=== PATIENT | female | born 2000 ===

== ENCOUNTER 2024-02-07 21:39 | Outpatient (REF) | payer MEDICAID, SELFPAY ==
--- OUTSIDE RECORDS SUMMARY | 2024-02-07 21:48 | XMS_ITS | Encounter Summary ---
[facility] Organization [facility] [place] [address] Care Team Providers Care Wet Pan Mixer Name Role Phone Chrsi Perez MD Primary Care Provider [phone] Reason for Visit * Reason Comments Varicella Encounter Details Date Type Department Care Team (Late st Contact Info) Description 12/25/2010 2:51 PM EDT - 12/25/2010 6:16 PM EDT [place] [address] Elvin Best Jr., MD [facility] [address] [place]ER[place] [address] Contact dermatitis and other eczema, due to unspecified cause Discharge Disposition: Home Social History Tobacco Use Types Packs/Day Years Used Date Smoking Tobacco: Never Smokeless Tobacco: Never Alcohol Use Standard Drinks/Week Comments No 0 (1 standard drink = 0.6 oz pur e alcohol) Sex and Gender Information Value Date Recorded Sex Assigned at Not on file Gender Identity Not on file Sexual Orientation Not on file documented as of this encounter Last Filed Vital Signs Vital Sign Reading Time Taken Comments Blood Pressure 109/65 12/25/2010 3:13 PM EDT Pulse 78 12/25/2010 3:13 PM EDT Temperature 36.7 ??C (98.1 ??F) 12/25/2010 3:13 PM ED T Respiratory Rate 16 12/25/2010 3:13 PM EDT Oxygen Saturation 99% 12/25/2010 3:13 PM EDT Inhaled Oxygen Concentration - - Weight - - Height - - Body Mass Index - - documented in this encounter Discharge Instructions * Discharge Instructions* Kavya Gonzales - 12/25/2010 6:14 PM EDT See attached document for details regarding contact dermatitis. Continue Prednisone as prescribed by your PCP. You may take Benadryl or Zyrtec as needed for itch. Apply Calamine lotion for itching asneeded. You should follow up with your PCP if symptoms worsen, particularly if rash extends to involve inside of mouth or eyes, or if appearance of rash changes. You should also see your PCP if any other concerns arise, including fever, feeling generally unwell, or any other concerns. * Attachments The following attachments cannot be sent through Care Everywhere. * POISON TESS, OAK, AND SUMAC: AFTER YOUR CHILD'S VISIT (LATVIAN) documented in this encounter Medications at Time of Discharge Medication Sig Dispensed Refills Start Date End Date predniSONE (DELTASONE) 5 mg tablet Take 5 mg by mouth daily. cetirizine (ZYRTEC) 10 mg tablet Take 10 mg by mouth daily. calamine (CALADRYL) lotion Apply topically as needed. documented as of this encounter ED Notes * Elvin Best Jr., MD - 12/25/2010 6:43 PM EDT Images from the original note were not included. Chief Complaint Patient presents with ??? Varicella HPI Per patient and her mother, Tena developed an itchy, erythematous rash affecting primarily her lower extremities approximately 1 week ago. She was outdoors, and possibly exposed to poison tess or other contact allergen. She was evaluated by her primary care physician, who diagnosed rhus dermatitis and prescribed a low dose of prednisone. Since that time she has not improved significantly, although she has not worsened either. She denies systemic signs such as fever and there is no mucous membrane involvement. THere are no sick contacts and no known exposure to varicella. In addition, this patient is up to date on all of her vaccinations. No Known Allergies Review of Systems Physical Exam Constitutional: She appears well-developed and well-nourished. HENT: Mouth/Throat: Mucous membranes are moist. Cardiovascular: Normal rate and regular rhythm. Pulses are palpable. Pulmonary/Chest: Effort normal and breath sounds normal. Abdominal: Soft. No tenderness. Musculoskeletal: Normal range of motion. Neurological: She is alert. Skin: Skin is warm and dry. Rash noted. No abrasion, no bruising and no petechiae noted. Rash is maculopapular and crusting. Rash is not pustular and not urticarial. No signs of injury. Procedures MDM Number of Diagnoses or Management Options Contact dermatitis and other eczema, due to unspecified cause: Amount and/or Complexity of Data Reviewed Obtain history from someone other than the patient: yes Risk of Complications, Morbidity, and/or Mortality Presenting problems: low Diagnostic procedures: minimal Management options: low ED Course: I interviewed and examined this patient in conjuction with Dr. Mcdonald, and I agree with the history and physical as documented in her note, and I agree with the treatment plan, disposition and plan for follow-up. Elvin Best Jr., MD 12/25/102013 Elvin Best Jr., MD 12/26/101954 * Kavya Gonzales - 12/25/2010 5:15 PM EDT Tena Chowdary is a 10 y.o. female Chief Complaint Patient presents with ??? Varicella HPI Tena Chowdary is a 10 y.o. female who presents with a rash which has progressed over the past 8 days. Rash started on her ankles and spread along her legs and to her toes. She has no genital or ocular involvement. She has known exposure to various local foliage 12 days ago. She was seen by her PCP three days ago and diagnosed with poison tess. She was started on a low dose prednisone taper at that time, as well as zyrtec for symptomatic relief. Mom has been applying calamine lotion. She has been doing epsom salt baths as well which have been moderately helpful. However, rash continued to spread. She is brought to the ED today for a second opinion. She has not history of poison tess. No steroid courses in the past. Immunizations are up to date. No known contacts with chickenpox. Medications Prednisone 5mg po daily Zyrtec 10 mg daily Allergies NKDA Review of Systems Constitutional: Negative for appetite change, fever, unexpected weight change. HENT: Negative for congestion, rhinorrhea, and ear pain. Cardiac: Negative for palpitations, chest pain, shortness of breath. Respiratory: Negative for cough, wheezing. Gastrointestinal: Negative for vomiting, abdominal pain, diarrhea and constipation. Genitourinary: Negative for decreased urine volume. Musculoskeletal: Negative for joint swelling and arthralgias. Skin: Negative for rash. Neuro: Negative for syncope, headaches, vision and hearing changes. Physical Exam Constitutional: No distress. HENT: Mouth/Throat: Oropharynx is clear. Eyes: Conjunctivae and EOM are normal. Pupils are equal, round, and reactive to light. Neck: Normal range of motion. Neck supple. Cardiovascular: Normal rate and regular rhythm. No murmur heard. Pulmonary/Chest: Effort normal and breath sounds normal. There is normal air entry. Abdominal: Soft. Neurological: She is alert. Skin: Skin is warm. Capillary refill takes less than 3 seconds. Rash ( ) noted. Rash is maculopapular, vesicular and urticarial. Psychiatric: She has a normal mood and affect. BP 109/65 Pulse 78 Temp(Src) 36.7 ??C (98.1 ??F) (Oral) Resp 16 SpO2 99% Procedures MDM Assessment/Plan: Tena Chowdary is a 10 y.o. female who presents with an urticarial rash for the past week. Appearance of course of illness is consistent with contact dermatitis, suspect due to poison tess or similar local foliage. Reassured by the absence of ocular, genital, or mucus membrane involvement. Sheshould finish her course of steroids. She may take benadryl and zyrtec and apply calamine lotion for symptomatic relief. She will follow up with her PCP as needed if symptoms do not continue to improve, or if she develops additional symptoms including fever, feeling generally unwell, or if rash changes in appearance or spreads, particularly if it involves eyes or mucus membranes. Kavya Gonzales MD Resident 12/25/10 2842 * Garo Noriega RN - 12/25/2010 3:42 PM EDT Mom noticed what looked like early poison tess 8 days ago on the back of her calf. Gradually spread over legs over the next few days. Not responsive calamine lotion or to prednisone. Rash continues tospread over legs. Only a few above waist. Lesions are small red raised bumps that becomes a vesicles. Has a few on the bottom of her feet and on the palms of her hands. C/o itching. documented in this encounter Miscellaneous Notes * Discharge Summary - Provider, Scanning - 12/26/2010 10:58 AM EDT * Miscellaneous - Provider, Scanning - 12/25/2010 5:17 PM EDT * ED Triage - Ritika Boyer RN - 12/25/2010 3:15 PM EDT Pt isolated in triage 2 with door shut to not expose pts and family members in lobby. * ED Triage - Ritika Boyer RN - 12/25/2010 3:08 PM EDT Pt started with fluid filled bumps on 12/17. Seen by pcp Wednesday put on prednisone for poison tess. Pt not better. Pt presents with multi fluid filled bulla on legs and arms, some crusted over, covered in caladryl lotion. Pt co itching. Pt states I just sort of stayed away from my classmates. documented in this encounter Plan of Treatment Not on file documented as of this encounter Visit Diagnoses Diagnosis Contact dermatitis and other eczema, due to unspecified cause documented in this encounter Care Teams Wet Pan Mixer Relationship Specialty Start Date End Date Chris Perez MD PCP - General 03/04/10 01/19/11 documented as of this encounter
--- OUTSIDE RECORDS SUMMARY | 2024-02-07 21:48 | XMS_ITS | Encounter Summary ---
Author Organization [facility] [place] [address] Care Team Providers Care Director Financial Planning Name Role Phone Saji Lilly MD Primary Care Provider [phone] Encounter Details Date Type Department Care Team (Late st Contact Info) Description 02/13/2014 3:45 PM EST Office Visit Audiology at [address] [address] Shantelle Bui AUD [facility] [place] [address] Other examination of ears and hearing (Primary Dx); Learning disabilities Discharge Disposition: Home Social History Tobacco Use Types Packs/Day Years Used Date Smoking Tobacco: Never Smokeless Tobacco: Never Alcohol Use Standard Drinks/Week Comments No 0 (1 standard drink = 0.6 oz pur e alcohol) Sex and Gender Information Value Date Recorded Sex Assigned at Not on file Gender Identity Not on file Sexual Orientation Not on file documented as of this encounter Progress Notes * Shantelle Bui MA - 02/13/2014 5:27 PM EST AUDIOLOGY SECTION [place], [place] HISTORY: Name: Tena CamposIsabel Age: 13 y.o. Referring Provider: SAJI LILLY MD Reason for Visit: Document hearing in light of academic difficulties. Accompanied by: mother, who contributed to the following information. ?? Family interested in documenting hearing in light of academic difficulties. Mother relayed that child presents with dyslexia and gap in working memory. Currently in the process of having educational evaluation completed through [facility]. Mother noted that child also underwent testing through the [facility] as well. ?? No overt hearing difficulties observed at home; does not appear to have marked difficulties hearing in noisier settings (when compared with others). Sings; carries a tune well. ?? No significant history of middle ear infections/fluid; last episode many years ago. ?? No ear pain/fullness/discomfort/ongoing tinnitus. ?? Described as a health youngster. ?? No family history of childhood hearing loss. ?? Uses hearing protection when target shooting. EVALUATION: (please refer to audiogram) IMPRESSIONS: Today's results consistent with normal hearing acuity and excellent word recognition ability for each ear. Today's results were shared with the family. It was explained no communication or academic difficulties anticipated given the current hearing configuration. With these things in mind, the following recommendations were discussed. RECOMMENDATIONS: ?? Audiologic reevaluation should new concerns arise. Today's results supported good peripheral auditory function. If, however, there are questions regarding auditory processing ability, then a formal auditory processing evaluation may be appropriate.Information regarding centers that provide auditory processing evaluations was shared briefly with the family ([facility] [place] offer this service[place] The family was encouraged to discuss the need/feasibility of auditory processing testing further with their primary care provider andschool staff. Shantelle Bui MA, [facility], [facility] Garment Patternmaker [place] [phone] (v) / [phone] (f) Attachment: audiogram CC: Parents of Tena Chowdary [address] [place] [address] SAJI LILLY MD / PCP documented in this encounter Plan of Treatment Not on file documented as of this encounter Visit Diagnoses Diagnosis Other examination of ears and hearing- Primary Learning disabilities Other specific developmental learning difficulties documented in this encounter Care Teams Director Financial Planning Relationship Specialty Start Date End Date Saji Lilly MD PCP - General 02/12/14 05/08/14 documented as of this encounter
--- OUTSIDE RECORDS SUMMARY | 2024-02-07 21:48 | XMS_ITS | Encounter Summary ---
[facility] Organization [facility] [place] [address] Care Team Providers Care Pediatric Critical Care Nurse Name Role Phone Marifer Lilly MD Primary Care Provider Encounter Details Date Type Department Care Team (Late st Contact Info) Description 02/14/2014 External Results [place] [address] Shantelle Bui AUD [facility] [place] [address] Social History Tobacco Use Types Packs/Day Years Used Date Smoking Tobacco: Never Smokeless Tobacco: Never Alcohol Use Standard Drinks/Week Comments No 0 (1 standard drink = 0.6 oz pur e alcohol) Sex and Gender Information Value Date Recorded Sex Assigned at Not on file Gender Identity Not on file Sexual Orientation Not on file documented as of this encounter Plan of Treatment Not on file documented as of this encounter Procedures Procedure Name Priority Date/Time Associated Diagnosis Comments AUDIOLOGY SCAN Routine 02/13/2014 documented in this encounter Results * Scan Doc: Audiology (02/13/2014) Shantelle Bui AUD MEDIA MGR SCAN EXT ORDR/RSLT documented in this encounter Visit Diagnoses Not on filedocumented in this encounter Care Teams Pediatric Critical Care Nurse Relationship Specialty Start Date End Date Marifer Lilly MD PCP - General 02/12/14 05/08/14 documented as of this encounter
--- OUTSIDE RECORDS SUMMARY | 2024-02-07 21:48 | XMS_ITS | Encounter Summary ---
Author Organization [facility] Address [facility] [place] [address] Care Team Providers Care Electrical Equipment Technician Name Role Phone Chelita Rahman MD Primary Care Provider [phone] Reason for Visit * Reason Comments ADHD Encounter Details Date Type Department Care Team (Late st Contact Info) Description 01/26/2014 9:30 AM EDT Office Visit Psychiatry and [place] [address] Jolene Llanes MD [facility] [place] [address] Learning disability (Primary Dx) Social History Tobacco Use Types Packs/Day Years [...] Sign Reading Time Taken Comments Blood Pressure 102/64 01/26/2014 11:31 AM EDT Pulse 66 01/26/2014 11:31 AM EDT Temperature - - Respiratory Rate - - Oxygen Saturation - - Inhaled Oxygen Concentration - - Weight 60 kg (132 lb 3.2 oz) 01/26/2014 11:31 AM EDT Height 165.1 cm (5' 5) 01/26/2014 11:31 AM EDT Body Mass Index 22 01/26/2014 11:31 AM EDT Body Mass Index Percentile 85.07% 01/26/2014 11: 31 AM EDT Growth Chart: CDC (Girls, 2- 20 Years) documented in this encounter Progress Notes * John Vera MD - 01/29/2014 10:46 AM EDT I have examined Tena and interviewed Mother with Dr Llanes and agree with her formulation and plan as documented. My MSE confirms hers. I agree with seeking consultation from Dr Kevin Hernandez for the purposes of facilitating an IEP at school that will better meet Tena's needs and accommodate her learning difficulties. * Jolene Llanes MD - 01/26/2014 12:06 PM EDT This patient was seen by and staffed by Dr. Vera during today's visit. DIAGNOSTIC INTERVIEW CPT CODE 83191/83507; DENITA 5100 Patient Name: Tena Chowdary : 2000 Encounter Date: 01/26/2014 Time Spent: 90m Location: [facility] Primary Care Provider: CHELITA RAHMAN MD Referred by: PCP Information Source: Child and parent interviews and rating scales, teacher rating scales, chart review,neuropsych testing Guardian(s): mom and dad Identifying Information/Chief Complaint: This is a 13 y.o. female in grade 7th at School who lives at [address] [place] [id number]. The mother's chief complaint is wanting IEP for learning disability and r/o ADHD. History of Present Illness: Tena is a 13y CF with a recent neuropsychiatric testing in July 2012 that shows specific deficits in working memory and dyslexia with some recommendations for school to better accommodate her learning. Mom wanted to have thorough testing and to rule out any contribution mental illness or ADHD symptoms. She has struggled in school most notably from 2nd grade onward, with extracurricular tutoring and has had poor grades as a result. She is enjoying school, wakes up around 7am with good energy and motivation at school and enjoys time with friends. She has homework, but mom has worked with patient and school to limit it to 1hour a day because of frustration that occurs and her inability to fully comprehend assignments which mom helps with. States when questions are read to her she understands better. Patient reports sometimes even with extra explanation still struggles to understand concepts explained in classroom. She watches TV, chats with friends, is involved in basketball, hunting, girl grape cutter and enjoys this. She sleeps without difficulty around 8-9p and maintains sleep through the night. Mostly in a good mood, denies generalized or school based anxieties, denies depression, daniel psychosis. In terms of ADHD Symptoms: mom does report she is forgetful and needs reminding of steps involved in a process, she also will at times do HW and not turn it in. Has not other symptoms, is able to listen when spoken to, denies careless mistakes, hyperactivity, impulsivity or other like symptoms. [facility] teacher and parent screen negative for ADHD. Also screen negative for other mental health diagnoses as well. There are otherwise no reported symptoms suggestive of lifetime diagnoses of ADHD, other externalizing disorders, depression, daniel, psychosis, anxiety, eating disorders, and drug or alcohol use disorders. Past Psychiatric History: July 2013 Neuropsych testing - dyslexia, gap in working memory Past Medical History: none There is no known history of a structural heart problem or syncope. There is no known history of serious head injury or seizures. Potential Side Effects and/or Review of Systems: Constitutional: Denies fatigue or sedation Cardiovascular: Denies chest pains or dizziness Musculoskeletal: Denies weakness or trouble walking GI: Denies constipation, diarrhea, nausea, or vomiting; appetite is normal Genitourinary: Denies dysuria, frequency of urination, or hematuria Neurological: Denies weakness, seizures, numbness, tics, or ataxia Psychiatric: See above Endocrine: Denies cold or heat intolerance, no polyuria or excessive thirst Hematologic/Lymphatic: No bruising, no recent infections Allergic/Immunological: see today's reviewed allergy list Family History: family history is not on file. There is no reported history of early in immediate family members, or known deaths at an early age that were cardiovascular in origin. Social/Developmental History: This patient's mom's with her was emergency given dropping HR, no complicationsas result. Early developmental milestones, including first words, first sentences, walking, and toilet training were all reached within normal limits. She lives with mom and dad Her relationship with parents and family is good The relationship between her parents is reportedly good. Recent grades in school: average to below average, doing better this year with help of teachers andless HW Her worst problems in school are . she has not received special accommodations through at the the school er friendships are reportedly good, Kevin and Josefina are friends. Her reported interests include Relevant trauma history: denies Vital Signs Blood pressure 102/64, pulse 66, height 165.1 cm (5' 5), weight 59.966 kg (132 lb 3.2 oz). Mental Status Exam: This is a 13 y.o. female who appears older her stated age, long blond hair, t- shirt, shorts. Her activity evel is normal with good eye contact. There are no overt tics or articulation problems. Mood is fine. Affect is euthymic to anxious, congruent to mood and thought, full range, no lability noted. Sensorium is alert and oriented X 4. Attention/concentration: intact, able to follow conversation, needs no redirection. Intelligence is average. Thought processes are goal directed, logical, and coherent with no looseness or associations or flight of ideas. She denies delusional or obsessive thoughts. There are no overt auditory or visual hallucinations observed. Denies suicidal or homicidal i deations. Her insight is fair, while her judgment is fair. Impression: (Please add a brief 2-4 sentence biopsychosocial formulation of factors contributing tocurrent presentation of symptoms): Tena is a 13y CF with history of dyslexia and working memory gap per neuropsychiatric testing in July 2012 here for evaluation of any mental health issues. Patient presents with difficulties in school from early age, at least 2nd grade on and having below average grades as a result. She does well socially, has few friends, participates in sports/girlscouts and has no difficulties at home. She sleeping and eating well. Mom states she has been working with school teachers to provide accommodations at school and has noted she does better when questions are read aloud to her and the teachersare providing more 1:1 support. Mom states last year was difficult with crying and issues regardinglearning frustration and this is now better explained by neuropsychiatric testing. Given her poor academic performance and problems at school as a result of her learning disabilities, dyslexia, issues with working memory as described her her neuropsychiatric evaluation feel patient would benefit from an IEP at school to facilitate her learning. She doesn't meet criteria for any other mental health diagnosis at this time including depression, anxiety, daniel, psychosis, ADHD or other externalizing disorders. Will ask mom to follow with Kevin Hernandez for more assistance in school setting, collaborate with school and return to PCP for routine care. Multi-axis diagnoses: I: : Encounter Diagnosis Name Primary? Learning disability Yes Current level of severity on CGI-S (1-normal, 2-borderline mentally ill, 3- mildly ill, 4-moderatelyill, 5-markedly ill, 6-severely ill, 7-extremely ill): 1 Plan: *We discussed her potential diagnoses above. *recommended have appointment with Kevin Hernandez for assistance with IEP//504 planning at school. Patient has had neuropsychiatric testing July 2012 that shows impairment in working memory and dyslexiawith recommendations for school to improve learning. *continue PCP follow up, return to this clinic as PRN basis *I have encouraged this patient's parent to discuss with the school her potential eligibility for either a 504 plan or IEP to address the difficulties she is currently having academically and interpersonally in school. I believe these difficulties are due to her underlying learning disability. Theyare clinically significant, potentially chronic, and may require some accommodations in the school setting for her to perform up to her academic potential. documented in this encounter Plan of Treatment Not on file documented as of this encounter Visit Diagnoses Diagnosis Learning disability- Primary Other specific developmental learning difficulties documented in this encounter Care Teams Electrical Equipment Technician Relationship Specialty Start Date End Date Chelita Rahman MD [address] [place] [address] PCP - General 01/20/11 02/11/14 documented as of this encounter
--- OUTSIDE RECORDS SUMMARY | 2024-02-07 21:48 | XMS_ITS | Encounter Summary ---
Author Organization [facility] [place] [address] Care Team Providers Care Land Surveyor Manager Name Role Phone Atul Dobbs DO Primary Care Provider [phone] Encounter Details Date Type Department Care Team (Late st Contact Info) Description 07/12/2023 Interpretation Only [facility] [address] [place] [id number] Jared Donovan MD [address] [place] [address] Social History Tobacco Use Types Packs/Day Years Used Date Smoking Tobacco: Never Assessed Sex and Gender Information Value Date Recorded Sex Assigned at Not on file Gender Identity Not on file Sexual Orientation Not on file documented as of this encounter Plan of Treatment Not on file documented as of this encounter Procedures Procedure Name Priority Date/Time Associated Diagnosis Comments XR FINGER(S) MIN 2 VIEWS LEFT STAT 07/12/2023 6:11 PM EDT documented in this encounter Results * XR Fingers Min 2 views Left (Generic) (07/12/2023 6:11 PM EDT) PT CLASS E DH RAD ADMITDTTM [id number] DH RAD PT RAD INFO [id number]^Zion^ Jared RAD EXAM DESC [id number]^XR Finger(s) 2+ Views Left^RIS DH RAD Anatomical Region Laterality Modality Hand Left Radiographic Julia ging 07/12/2023 6:11 PM EDT Impressions 07/12/2023 6:22 PM EDT 1. ??No acute fracture or malalignment of the first digit/thumb. 2. ??No radiopaque foreign body. Thank you for letting us participate in the care of this patient. ??If you are a health care provider and have any questions regarding this report, please contact the number below. ??For patients who have questions please contact the health senior care manager that requested your imaging first. ? Electronically signed by: Amauri Salomon MD, [facility] ([phone]), at 07/12/2023 6:22 PM Narrative 07/12/2023 6:22 PM EDT EXAMINATION: XR Finger(s) 2+ Views Left CLINICAL HISTORY: lac left thumb TECHNIQUE: 3 views of the left first digit/thumb. 3 images. COMPARISON: None FINDINGS: Dressing material partially obscures the distal aspect of the thumb / first digit. No acute fracture. Normal osseous alignment. No radiopaque foreign body. Joint spaces are normal. No degenerative changes. Procedure Note Amauri Salomon MD - 07/12/2023 EXAMINATION: XR Finger(s) 2+ Views Left CLINICAL HISTORY: lac left thumb TECHNIQUE: 3 views of the left first digit/thumb. 3 images. COMPARISON: None FINDINGS: Dressing material partially obscures the distal aspect of the thumb /first digit. No acute fracture. Normal osseous alignment. No radiopaque foreignbody. Joint spaces are normal. No degenerative changes. IMPRESSION 1. No acute fracture or malalignment of the first digit/thumb. 2. No radiopaque foreign body. Thank you for letting us participate in the care of this patient. If youare a health care provider and have any questions regarding this report,please contact the number below. For patients who have questions please contactthe health senior care manager that requested your imaging first. Electronically signed by: Amauri Salomon MD, [facility]([phone]), at 07/12/2023 6:22 PM Jared Donovan MD IMG DX ORDERABLES documented in this encounter Visit Diagnoses Not on filedocumented in this encounter Care Teams Land Surveyor Manager Relationship Specialty Start Date End Date Atul Dobbs DO [address] [place] [address] PCP - General 05/09/14 documented as of this encounter
--- OUTSIDE RECORDS SUMMARY | 2024-02-07 21:48 | XMS_ITS | Clinical Summary ---
[facility] [place] [address] Care Team Providers Care Commodity Supervisor Name Role Phone Atul Dobbs DO Primary Care Provider [phone] Allergies No known active allergies Medications Medication Sig Dispensed Refills Start Date End Date Status predniSONE (DELTASONE) 5 mg tablet Take 5 mg by mouth daily. Active cetirizine (ZYRTEC) 10 mg tablet Take 10 mg by mouth daily. Active calamine (CALADRYL) lotion Apply topically as needed. Active Active Problems Problem Noted Date Diagnosed Date Learning disabilities 01/26/2014 Social History Tobacco Use Types Packs/Day Years Used Date Smoking Tobacco: Never Smokeless Tobacco: Never Alcohol Use Standard Drinks/Week Comments No 0 (1 standard drink = 0.6 oz pur e alcohol) Sex and Gender Information Value Date Recorded Sex Assigned at Not on file Gender Identity Not on file Sexual Orientation Not on file Last Filed Vital Signs Vital Sign Reading Time Taken Comments Blood Pressure 102/64 01/26/2014 11:31 AM EDT Pulse 66 01/26/2014 11:31 AM EDT Temperature 36.7 ??C (98.1 ??F) 12/25/2010 3:13 PM ED T Respiratory Rate 16 12/25/2010 3:13 PM EDT Oxygen Saturation 99% 12/25/2010 3:13 PM EDT Inhaled Oxygen Concentration - - Weight 60 kg (132 lb 3.2 oz) 01/26/2014 11:31 AM EDT Height 165.1 cm (5' 5) 01/26/2014 11:31 AM EDT Body Mass Index 22 01/26/2014 11:31 AM EDT Plan of Treatment Health Maintenance Due Date Last Done Comments Chlamydia Screening 2016 HPV vaccine (1 - 3-dose series) 2016 HIV screen 09/29/2019 Hepatitis C Screening 09/29/2019 Hepatitis B vaccine (0-59 yrs) (1) 2020 Tetanus/Diphtheria/Pertussis Vaccines (1 - Tdap) 09/28 PAP Smear 2022 Covid-19 Vaccine (1 - 2022-24 season) 2023 Influenza (Flu) vaccine (1 o f 1 - Influenza standard series) 12/12/2023 Care Teams Commodity Supervisor Relationship Specialty Start Date End Date Atul Dobbs DO [address] [place] [address] PCP - General 05/09/14
== END 2024-02-07 21:40 | disposition home or self-care (01) ==
LOC: LBN 21:39
PROVIDERS: Visit Provider Nurse Practitioner Family
DX: N30.00 Acute cystitis without hematuria (principal)
CPT/HCPCS: 87086